=== PATIENT | female | born 1995 | race Caucasian/White ===

== ENCOUNTER → 2016-11-28 | Outpatient (REF) | payer BC, OTHER ==
[2016-11-28 19:03] LABS: ALBUMIN 3.8 GM/DL (3.2-5.2); ALBUMIN/GLOBULIN RATIO 1.15 (1.00-1.93); ALKALINE PHOSPHATASE 58 U/L (45-117); ALT/SGPT 27 U/L (12-78); AMYLASE 32 U/L (25-115); ANION GAP 11 MEQ/L (8-16); AST/SGOT 10 U/L (15-37); BILIRUBIN,TOTAL 0.2 MG/DL (0.2-1.0); BLOOD UREA NITROGEN 10 MG/DL (7-18); CALCIUM LEVEL 8.7 MG/DL (8.5-10.1); CARBON DIOXIDE LEVEL 24 MEQ/L (21-32); CHLORIDE LEVEL 108 MEQ/L (98-107); CREATININE FOR GFR 0.58 MG/DL (0.55-1.02); GLOMERULAR FILTRATION RATE > 60.0 (>60); GLUCOSE, FASTING 88 MG/DL (70-105); POTASSIUM SERUM 4.1 MEQ/L (3.5-5.1); SODIUM LEVEL 143 MEQ/L (136-145); TOTAL PROTEIN 7.1 GM/DL (6.4-8.2)
[2016-11-28 19:25] LABS: BASO # 0.1 K/mm3 (0.0-0.2); BASO % 0.9 % (0.0-1.0); EOS # 0.6 K/mm3 (0.0-0.50); EOS % 6.4 % (0.0-3.0); LARGE UNSTAINED CELL # 0.1 K/mm3 (0.0-0.4); LARGE UNSTAINED CELL % 1.4 % (0.0-4.0); LYMPH # 2.3 K/mm3 (1.5-6.5); LYMPH % 23.6 % (24.0-44.0); MEAN CORPUSCULAR HEMOGLOBIN 29.1 pg (27.0-33.0); MEAN CORPUSCULAR HGB CONC 33.6 g/dl (32.0-36.5); MEAN CORPUSCULAR VOLUME 86.5 fl (80.0-96.0); MONO # 0.5 K/mm3 (0.0-0.8); MONO % 5.3 % (0.0-5.0); NEUTROPHILS # 5.6 K/mm3 (1.8-7.7); NEUTROPHILS % 62.4 % (36.0-66.0); PLATELET COUNT, AUTOMATED 267 k/mm3 (150-450); RED CELL DISTRIBUTION WIDTH 12.7 % (11.5-14.5)
[2016-11-29 09:56] LABS: CONTROL LINE MONO RF C INT CTR LINE PRESENT
[2016-12-01 00:09] LABS: Lyme Disease IgG/IgM Antibodie <0.91 ISR (0.00-0.90); Lyme Disease IgM Ab Quantitati <0.80 index (0.00-0.79)
== END ==
LOC: M LAB REF 12:51
PROVIDERS: ATTEND Physician Assistant Medical
DX: R10.9 Unspecified abdominal pain (principal)

== ENCOUNTER → 2017-03-05 | Outpatient (CLI) | payer BC, OTHER ==
[2017-03-05 17:21] LABS: BASO # 0.1 10^3/uL (0.0-0.2); BASO % 0.5 % (0.0-1.0); EOS # 0.4 10^3/uL (0.0-0.50); EOS % 3.8 % (0.0-3.0); IMMATURE GRANULOCYTE % 0.5 % (0-0); LYMPH # 2.2 10^3/uL (1.5-6.5); LYMPH % 19.7 % (24.0-44.0); MEAN CORPUSCULAR HEMOGLOBIN 28.9 pg (27.0-33.0); MEAN CORPUSCULAR HGB CONC 33.3 g/dl (32.0-36.5); MEAN CORPUSCULAR VOLUME 86.8 fl (80.0-96.0); MONO # 0.7 10^3/uL (0.0-0.8); MONO % 5.9 % (0.0-5.0); NEUTROPHILS # 7.6 10^3/uL (1.8-7.7); NEUTROPHILS % 69.6 % (36.0-66.0); PLATELET COUNT, AUTOMATED 317 10^3/uL (150-450); RED CELL DISTRIBUTION WIDTH 13.2 % (11.5-14.5)
[2017-03-05 19:07] LABS: ALBUMIN 3.8 GM/DL (3.2-5.2); ALBUMIN/GLOBULIN RATIO 1.03 (1.00-1.93); ALKALINE PHOSPHATASE 61 U/L (45-117); ALT/SGPT 23 U/L (12-78); ANION GAP 11 MEQ/L (8-16); AST/SGOT 8 U/L (7-37); BILIRUBIN,TOTAL 0.3 MG/DL (0.2-1.0); BLOOD UREA NITROGEN 12 MG/DL (7-18); CALCIUM LEVEL 8.7 MG/DL (8.5-10.1); CARBON DIOXIDE LEVEL 26 MEQ/L (21-32); CHLORIDE LEVEL 103 MEQ/L (98-107); CREATININE FOR GFR 0.57 MG/DL (0.55-1.02); FREE T4 0.94 NG/DL (0.76-1.46); GLOMERULAR FILTRATION RATE > 60.0 (>60); GLUCOSE, FASTING 120 MG/DL (70-105); POTASSIUM SERUM 4.5 MEQ/L (3.5-5.1); SODIUM LEVEL 140 MEQ/L (136-145); TOTAL PROTEIN 7.5 GM/DL (6.4-8.2)
[2017-03-06 08:20] LABS: CONTROL LINE MONO INT CTR LINE PRESENT
[2017-03-07 14:10] LABS: Lyme Disease IgG/IgM Antibodie <0.91 ISR (0.00-0.90); Lyme Disease IgM Ab Quantitati <0.80 index (0.00-0.79)
== END ==
LOC: M SMT 15:09
PROVIDERS: ATTEND Physician Assistant
DX: R53.83 Other fatigue (principal)

== ENCOUNTER → 2020-09-06 | Outpatient (REF) | payer OTHER | LOC: M PLALAB 13:47 | PROVIDERS: ATTEND Advanced Practice Midwife | DX: O99.211 Obesity complicating pregnancy, first trimester (principal); Z3A.00 Weeks of gestation of pregnancy not specified ==

== ENCOUNTER → 2020-10-25 | Outpatient (CLI) | payer BC, OTHER ==
[2020-10-25 13:33] LABS: HEMATOCRIT 38.2 % (36.0-47.0); HEMOGLOBIN 12.4 g/dl (12.0-15.5); MEAN CORPUSCULAR HEMOGLOBIN 28.6 pg (27.0-33.0); MEAN CORPUSCULAR HGB CONC 32.5 g/dl (32.0-36.5); PLATELET COUNT, AUTOMATED 188 10^3/uL (150-450); RED BLOOD COUNT 4.34 10^6/uL (4.00-5.40); WHITE BLOOD COUNT 9.1 10^3/uL (4.0-10.0)
[2020-10-25 14:00] LABS: TOTAL PROTEIN,RANDOM URINE 13.8 MG/DL (0.0-12.0)
[2020-10-25 14:23] LABS: HEMOGLOBIN A1c 5.4 %
[2020-10-25 14:50] LABS: GC DNA AMPLIFICATION NEGATIVE (NEGATIVE)
[2020-10-25 19:54] LABS: ALT/SGPT 30 U/L (12-78); BILIRUBIN,TOTAL 0.2 MG/DL (0.2-1.0); CREATININE FOR GFR 0.52 MG/DL (0.55-1.30); GLOMERULAR FILTRATION RATE > 60.0 (>60); GLUCOSE CHALLENGE TEST 1 HOUR 126 MG/DL (LESS THAN 140); LDH LACTATE DEHYDROGENASE 192 U/L (84-246); URIC ACID 2.1 MG/DL (2.6-6.0)
[2020-10-25 20:44] LABS: HEPATITIS C VIRUS ABY INDEX 0.1 INDEX (<0.8); HIV 1&2 SCREEN CENTAUR NEGATIVE (NEGATIVE)
== END ==
LOC: M PLALAB 08:14
PROVIDERS: ATTEND Advanced Practice Midwife
DX: Z34.81 Encounter for supervision of other normal pregnancy, first trimester (principal)

== ENCOUNTER → 2020-11-01 | Outpatient (REF) | payer BC, OTHER | LOC: M SFHCWAGY 12:51 | PROVIDERS: ATTEND Advanced Practice Midwife | DX: O99.211 Obesity complicating pregnancy, first trimester (principal); E66.9 Obesity, unspecified; Z3A.00 Weeks of gestation of pregnancy not specified ==

== ENCOUNTER → 2021-01-10 | Outpatient (CLI) | payer BC, OTHER ==
--- NOTE | 2021-01-10 09:36 | REP ---
INDICATION: ANATOMY. COMPARISON: None. TECHNIQUE: Transabdominal scanning FINDINGS: Multiple ultrasonographic images of the gravid uterus shows a single living intrauterine gestation in the cephalic presentation. The placenta is posterior and not low-lying. The cervix measures 5.2 cm in length and is closed. Doppler interrogation of the heart shows a heart rate of 160 beats per minute. The subjective amniotic fluid volume is within normal limits. BPD: 5.6 cm 23 weeks 1 day HC: 21.5 cm 23 weeks 4 days AC: 18.7 cm 23 weeks 3 days FL: 4.3 cm 24 weeks 2 days The estimated weight is 624 g which is at the 95th percentile for a 22 week 3 day gestational age. anatomical structures seen to be unremarkable are as follows: Thalami, cavum septum pellucidum, cerebellum, cisterna magna, cerebral ventricles, kidneys, stomach, cord insertion, ventricular outflow tracts, upper lip, extremities, and four-chamber heart. The spine and three-vessel umbilical cord were seen suboptimally. An intracardiac echogenic focus was identified. IMPRESSION: Single living intrauterine gestation as described above with an estimated gestational age of 23 weeks 5 days via composite criteria and an estimated date of delivery of 05/04/2021 by today's exam. No anomalies were detected, however, I recommend a follow-up examination for optimal visualization of the spine and three-vessel umbilical cord. Additionally, re-evaluation of the echogenic intracardiac focus is recommended. <Electronically signed by Maximino Snow > 01/10/21 [id number]
== END ==
LOC: M WHC 08:09
PROVIDERS: ATTEND Advanced Practice Midwife
DX: O99.212 Obesity complicating pregnancy, second trimester (principal)

== ENCOUNTER → 2021-01-17 | Outpatient (CLI) | payer BC, OTHER | LOC: M PLALAB 10:49 | PROVIDERS: ATTEND Advanced Practice Midwife | DX: Z34.82 Encounter for supervision of other normal pregnancy, second trimester (principal) ==

== ENCOUNTER → 2021-01-28 | Outpatient (CLI) | payer BC, OTHER ==
--- NOTE | 2021-01-28 09:40 | REP ---
INDICATION: F/U ANATOMY. COMPARISON: 01/10/2021 TECHNIQUE: Follow-up Ob ultrasound from incomplete anatomy screen. FINDINGS: Scanning demonstrates a viable single intrauterine gestation in a cephalic lie. motion is observed and heart rate is recorded at 143 beats per minute. An anterior, grade zero placenta is seen without evidence of previa. Amniotic fluid is subjectively normal. Closed cervical length is measured at 4.8 cm transabdominally. No extrauterine abnormality is observed. There has been appropriate interval growth. The following anatomic structures are identified and felt to be sonographically unremarkable: cranium, choroid plexus, cavum, cerebellum and posterior fossa, face and profile, lungs, four-chamber heart with left and right ventricular outflow tract views, diaphragm, left-sided stomach, abdominal wall cord insertion, three-vessel umbilical cord, kidneys and bladder, spine, and upper and lower extremities. The study again shows an echogenic intracardiac focus, unchanged. Biometry chart: BPD 6.5 cm; 26 weeks 1 days Head circumference 24 cm; 26 weeks 1 days Abdominal circumference 22.1 cm; 26 weeks 4 days Femur length 4.9 cm; 26 weeks 3 days Humeral length 4.5 cm; 26 weeks 6 days HC/AC ratio normal 1.09 Cephalic index normal 0.75 Estimated weight 938 grams, 2 pounds 1 ounces, 93rd percentile for 25 weeks 0 days. IMPRESSION: Viable single intrauterine gestation at 26 weeks 3 days by today's composite sonographic criteria. Expected gestational age estimate based on prior sonography is 25 weeks is 0 days. CEDRIC by prior sonography 05/13/2021. There is again seen an intracardiac echogenic focus but the anatomy screen is now complete and there is no other anomaly. <Electronically signed by Fly Matute > 01/28/21 [id number]
== END ==
LOC: M WHC 06:53
PROVIDERS: ATTEND Advanced Practice Midwife
DX: Z34.82 Encounter for supervision of other normal pregnancy, second trimester (principal)

== ENCOUNTER → 2021-02-18 | Outpatient (CLI) | payer OTHER, BC ==
[~2021-02-18] MED LIST: CETI5SOL3 PO; DIPH50CA PO; ECOT81TA5 PO; PRENTAB9 PO
[2021-02-18 13:23] LABS: HEMATOCRIT 36.3 % (36.0-47.0); HEMOGLOBIN 11.5 g/dl (12.0-15.5); MEAN CORPUSCULAR HEMOGLOBIN 28.8 pg (27.0-33.0); MEAN CORPUSCULAR HGB CONC 31.7 g/dl (32.0-36.5); PLATELET COUNT, AUTOMATED 188 10^3/uL (150-450); RED BLOOD COUNT 3.99 10^6/uL (4.00-5.40); WHITE BLOOD COUNT 11.1 10^3/uL (4.0-10.0)
== END ==
LOC: M PLALAB 10:37
PROVIDERS: ATTEND Advanced Practice Midwife
DX: O10.012 Pre-existing essential hypertension complicating pregnancy, second trimester (principal); Z3A.00 Weeks of gestation of pregnancy not specified
CPT/HCPCS: 36415; 82950; 85027; 86850; 86900; 86901; J2790

== ENCOUNTER → 2021-03-07 | Outpatient (CLI) | payer BC, OTHER | LOC: M LAB 07:01 | PROVIDERS: ATTEND Advanced Practice Midwife | DX: O99.810 Abnormal glucose complicating pregnancy (principal); Z3A.00 Weeks of gestation of pregnancy not specified ==

== ENCOUNTER → 2021-03-28 | Outpatient (CLI) | payer BC, OTHER ==
--- NOTE | 2021-03-28 13:59 | REP ---
INDICATION: F/U ANATOMY COMPARISON: 01/28/2021 TECHNIQUE: Transabdominal obstetrical ultrasound with color Doppler evaluation. FINDINGS: Examination demonstrates a single live intrauterine in cephalic presentation. motion is identified by technologist. Placenta is noted posterior and grade 2 without evidence for placenta previa or abruption. Amniotic fluid volume is normal. Cervix is incompletely evaluated due to cephalic presentation obscuring the cervix. Selected gestational age: 33 weeks 3 days with CEDRIC 05/13/2021. Gestational age by current measurements 34 weeks 2 days with CEDRIC 05/07/2021. FHR equals 152 beats per minute. BPD: 8.6 cm; 34 weeks 6 days; 70% HC: 30.3 cm; 33 weeks 4 days; 53% AC: 33.7 cm; 37 weeks 4 days; >95% FL: 6.3 cm; 32 weeks 3 days; 35% HL: 5.6 cm; 32 weeks 5 days; 38% HC/AC: 0.90 Estimated weight 2725 grams (95thpercentile). PACO: 12.4 cm (8.2-24.6) Umbilical artery SD ratio: 2.19 (1.76-3.73) IMPRESSION: Single live advanced gestation in cephalic presentation. Estimated weight is upper limits of normal. <Electronically signed by Shashi Bruno > 03/28/21 [id number]
== END ==
LOC: M WHC 12:33
PROVIDERS: ATTEND Advanced Practice Midwife
DX: O10.013 Pre-existing essential hypertension complicating pregnancy, third trimester (principal); Z3A.33 33 weeks gestation of pregnancy

== ENCOUNTER → 2021-04-11 | Outpatient (REF) | payer BC, OTHER | LOC: M SFHCWAGY 13:06 | PROVIDERS: ATTEND Advanced Practice Midwife | DX: O10.013 Pre-existing essential hypertension complicating pregnancy, third trimester (principal); Z3A.00 Weeks of gestation of pregnancy not specified ==

== ENCOUNTER → 2021-04-25 | Outpatient (CLI) | payer BC, OTHER | LOC: M WHC 08:41 | PROVIDERS: ATTEND Advanced Practice Midwife | DX: O10.013 Pre-existing essential hypertension complicating pregnancy, third trimester (principal) ==

== ENCOUNTER 2021-04-28 03:56 | Inpatient (IN) | payer BC, OTHER ==
[2021-04-28] VITALS (31 sets, daily range): BP systolic 78–153; BP diastolic 37–80
[~2021-04-28] VITALS: Ht 157.5 cm; Wt 133.4 kg
[2021-04-28] MEDS ORDERED: PRENTAB9 PO (04:31)
[2021-04-28] MEDS ORDERED: ECOT81TA5 PO (04:35)
[2021-04-28] MEDS ORDERED: DIPH50CA PO (04:35)
[2021-04-28] MEDS ORDERED: CETI5SOL3 PO (04:35)
[2021-04-28] MEDS ORDERED: HOME MED LIST COMPLETE! XX SCH (05:00)
[2021-04-28] MEDS ORDERED: LACTATED RINGER'S 1000 ML IV STA (05:26)
[2021-04-28] MEDS ORDERED: AMPICILLIN SOD 2 GM in D5W MINI-BAG PLUS 100 ML IV STA (05:26)
[2021-04-28] MEDS ORDERED: OXYTOCIN DRIP 30 UNITS in IV 1 EA IV PRN (05:30)
[2021-04-28] MEDS: LR 1,000 ML IV SCH ×2 (05:30→19:00)
[2021-04-28 06:20] LABS: BASO % 0.3 % (0.0-1.0); EOS # 0.2 10^3/uL (0.0-0.5); EOS % 1.6 % (0.0-3.0); HEMATOCRIT 36.7 % (36.0-47.0); HEMOGLOBIN 11.9 g/dl (12.0-15.5); LYMPH # 2.3 10^3/uL (1.5-5.0); LYMPH % 17.4 % (24.0-44.0); MEAN CORPUSCULAR HEMOGLOBIN 28.1 pg (27.0-33.0); MEAN CORPUSCULAR HGB CONC 32.4 g/dl (32.0-36.5); MEAN CORPUSCULAR VOLUME 86.6 fl (80.0-96.0); MONO # 0.9 10^3/uL (0.0-0.8); MONO % 6.9 % (2.0-8.0); NEUTROPHILS # 9.5 10^3/uL (1.5-8.5); NEUTROPHILS % 72.9 % (36.0-66.0); PLATELET COUNT, AUTOMATED 182 10^3/uL (150-450); RED BLOOD COUNT 4.24 10^6/uL (4.00-5.40)
[2021-04-28] MEDS ORDERED: FENTANYL 2MCG/ML ROPIVACAINE 0.2% IN 0.9% NACL 100ML IVBAG As Ordered ONE ×2 (08:37→18:54)
[2021-04-28] MEDS ORDERED: EPIDURAL/PCA KEYS XX PRN (08:38)
[2021-04-28] MEDS ORDERED: ONDANSETRON 4MG/2ML VIAL IV PRN (08:38)
[2021-04-28] MEDS ORDERED: EPIDURAL COMMENT XX SCH (08:38)
[2021-04-28] MEDS ORDERED: diphenhydrAMINE 50MG/ML VIAL (J1200) IV PRN (08:38)
[2021-04-28] MEDS ORDERED: LACTATED RINGER'S 1000 ML IV PRN (08:38)
[2021-04-28] MEDS ORDERED: ePHEDrine SULFATE 25 MG/5 ML(5MG/ML) SYRINGE IV PRN (08:38)
[2021-04-28] MEDS ORDERED: NALOXONE INJ 0.4MG/1ML VIAL (J2310 PER 1MG) IV PRN (08:38)
[2021-04-28] MEDS ORDERED: REFRIGERATOR IV KEYS XX PRN (08:38)
[2021-04-28] MEDS: FENTANYL/ROPIVACAINE/NACL BAG 100 ML EPIDURAL SCH ×2 (09:09→18:59)
[2021-04-28] MEDS: AMPICILLIN SOD 1 GM in D5W MINI-BAG PLUS 50 ML IV SCH ×3 (11:51→20:00)
[2021-04-28] MEDS ORDERED: CALCIUM CARBONATE 500 MG CHEW U/D PO ONE (20:00)
[2021-04-28] MEDS ORDERED: OXYTOCIN DRIP 30 UNITS in IV 1 EA IV SCH (23:50)
[2021-04-29] VITALS (10 sets, daily range): BP systolic 111–160; BP diastolic 53–91
[2021-04-29 00:50] LABS: CORD GAS ABE A -1.8; CORD GAS ABE V -3.5; CORD GAS HCO3 A 25.9 MEQ/L; CORD GAS HCO3 V 22.4 MEQ/L; CORD GAS O2 SAT V 64.9 %; CORD GAS PCO2 V 43.5 mmHg; CORD GAS PH A 7.283 UNITS; CORD GAS PH V 7.33 UNITS; CORD GAS PO2 A 17.4 mmHg; CORD GAS SBC A 21.4 MEQ/L; CORD GAS SBC V 20.8 MEQ/L; CORD GAS TCO2 A 27.6 MEQ/L; CORD GAS TCO2 V 23.8 MEQ/L
[2021-04-29] MEDS: IBUPROFEN 800 MG TAB PO PRN ×3 (01:40→17:49)
[2021-04-29] MEDS ORDERED: RHOGAM 300 MCG (1500 IU) INJ (J2790) IM SCH (02:20)
[2021-04-29] MEDS ORDERED: PERCOCET 5MG/325MG TAB PO ONE (03:00)
[2021-04-29] MEDS ORDERED: diphenhydrAMINE 25MG CAP PO ONE (06:00)
[2021-04-29] MEDS ORDERED: ANUSOL HC CREAM 30GM TOP PRN (11:00)
[2021-04-29] MEDS ORDERED: MOM 30ML SUSPENSION UDC PO PRN (11:00)
[2021-04-29] MEDS ORDERED: DIBUCAINE 1% OINTMENT 30GM TOP PRN (11:00)
[2021-04-29] MEDS ORDERED: MEASLES,MUMPS,RUBELLA VACCINE INJ (MMR-II) (90707) SC SCH (11:00)
[2021-04-29] MEDS ORDERED: ACETAMINOPHEN TAB 650MG DOSE (2X325MG) PO PRN (11:00)
[2021-04-29] MEDS ORDERED: METHYLERGONOVINE MALEATE 0.2 MG TAB PO PRN (11:00)
[2021-04-29] MEDS: ACETAMINOPHEN 500 MG TAB PO PRN (14:29)
[2021-04-29] MEDS: DOCUSATE SODIUM 100MG CAPSULE PO PRN (17:57)
[2021-04-30] MEDS: IBUPROFEN 800 MG TAB PO PRN ×3 (01:44→20:20)
[2021-04-30 06:36] VITALS: BP 132/66
[2021-04-30] MEDS: PRENATAL VITAMINS CHEWABLE TABLET PO SCH (07:50)
[2021-04-30] MEDS: ACETAMINOPHEN 500 MG TAB PO PRN ×2 (07:50→17:15)
[2021-04-30 18:00] VITALS: BP 123/72
[2021-04-30] MEDS: DOCUSATE SODIUM 100MG CAPSULE PO PRN (20:20)
[2021-05-01] MEDS: ACETAMINOPHEN 500 MG TAB PO PRN (05:51)
[2021-05-01 06:00] VITALS: BP 112/59
[2021-05-01] MEDS: IBUPROFEN 800 MG TAB PO PRN (07:56)
[2021-05-01] MEDS: PRENATAL VITAMINS CHEWABLE TABLET PO SCH (07:56)
== END 2021-05-01 12:04 | disposition home or self-care (01) | DRG 560 ==
LOC: M LDO 03:56 → M LDI 05:29 → M OBS 04-29 05:42
PROVIDERS: ADMIT Obstetrics & Gynecology; ATTEND Obstetrics & Gynecology
PROC: 10E0XZZ Delivery of Products of Conception, External Approach (ICD-10-PCS; principal; 2021-04-29)
DX: O99.334 Smoking (tobacco) complicating childbirth (principal); Z37.0 Single live birth; Z3A.37 37 weeks gestation of pregnancy; F17.200 Nicotine dependence, unspecified, uncomplicated; O99.820 Streptococcus B carrier state complicating pregnancy

== ENCOUNTER → 2022-05-15 | Outpatient (REF) | payer BC, OTHER ==
[2022-05-15 18:37] LABS: APPEARANCE, URINE HAZY (CLEAR); BILIRUBIN, URINE AUTO NEGATIVE (NEGATIVE); BLOOD, URINE BLOOD NEGATIVE (NEGATIVE); COLOR, URINE YELLOW (YELLOW); GLUCOSE, URINE (UA) AUTO NEGATIVE (NEGATIVE); KETONE, URINE AUTO 1+ mg/dL (NEGATIVE); LEUKOCYTE ESTERASE, URINE AUTO TRACE (NEGATIVE); NITRITE, URINE AUTO NEGATIVE (NEGATIVE); PROTEIN, URINE AUTO NEGATIVE (NEGATIVE); SPECIFIC GRAVITY URINE AUTO 1.017 (1.002-1.035)
[2022-05-15 18:45] LABS: BACTERIA, URINE AUTO 1+ (NEGATIVE); RBC, URINE AUTO 1 /HPF (0-3); SQUAMOUS EPITHELIAL CELL UR AU 10 /HPF (0-6); WBC, URINE AUTO 4 /HPF (0-3)
== END ==
LOC: M SFHCLERA 16:53
PROVIDERS: ATTEND Physician Assistant
DX: R10.84 Generalized abdominal pain (principal)

== ENCOUNTER → 2022-06-04 | Outpatient (CLI) | payer BC ==
[2022-06-04 11:38] LABS: BASO # 0.1 10^3/uL (0.0-0.2); BASO % 0.5 % (0.0-1.0); EOS # 0.3 10^3/uL (0.0-0.5); EOS % 2.6 % (0.0-3.0); HEMATOCRIT 39.2 % (36.0-47.0); HEMOGLOBIN 12.7 g/dl (12.0-15.5); LYMPH # 1.9 10^3/uL (1.5-5.0); LYMPH % 18.8 % (24.0-44.0); MEAN CORPUSCULAR HEMOGLOBIN 28.2 pg (27.0-33.0); MEAN CORPUSCULAR HGB CONC 32.4 g/dl (32.0-36.5); MEAN CORPUSCULAR VOLUME 87.1 fl (80.0-96.0); MONO # 0.7 10^3/uL (0.0-0.8); MONO % 6.7 % (2.0-8.0); NEUTROPHILS % 71.1 % (36.0-66.0); PLATELET COUNT, AUTOMATED 242 10^3/uL (150-450); WHITE BLOOD COUNT 9.9 10^3/uL (4.0-10.0)
[2022-06-04 11:41] LABS: ALBUMIN 3.6 G/DL (3.2-5.2); ALKALINE PHOSPHATASE 49 U/L (46-116); ALT/SGPT 21 U/L (7.0-40); AST/SGOT 11 U/L (<34); BILIRUBIN,TOTAL 0.3 MG/DL (0.3-1.2); BLOOD UREA NITROGEN 12 MG/DL (9-23); CALCIUM LEVEL 8.7 MG/DL (8.5-10.1); CARBON DIOXIDE LEVEL 25 MMOL/L (20-31); CHLORIDE LEVEL 106 MMOL/L (98-107); CHOLESTEROL LEVEL 140 MG/DL (<200); CHOLESTEROL RISK RATIO 2.31 (<5); CREATININE FOR GFR 0.58 MG/DL (0.55-1.30); GLOMERULAR FILTRATION RATE > 60.0 (>60); GLUCOSE, FASTING 95 MG/DL (60-100); HDL CHOLESTEROL 60.6 MG/DL (>40); LDL CHOLESTEROL 68.4 MG/DL (<100); NON-HDL-C 79 MG/DL; POTASSIUM SERUM 4.3 MMOL/L (3.5-5.1); SODIUM LEVEL 139 MMOL/L (136-145); TOTAL PROTEIN 6.4 G/DL (5.7-8.2); TRIGLYCERIDES LEVEL 55 MG/DL (<150)
[2022-06-04 12:09] LABS: HEMOGLOBIN A1c 5.3 % (4.0-6.0)
== END ==
LOC: M PLALAB 07:25
PROVIDERS: ATTEND Student in an Organized Health Care Education/Training Program
DX: R73.01 Impaired fasting glucose (principal); E66.01 Morbid (severe) obesity due to excess calories; Z76.89 Persons encountering health services in other specified circumstances

== ENCOUNTER → 2022-06-04 | Outpatient (CLI) | payer BC | LOC: M WHC 06:56 | PROVIDERS: ATTEND Physician Assistant | DX: R10.13 Epigastric pain (principal) ==

== ENCOUNTER → 2022-06-04 | Outpatient (CLI) | payer BC ==
[2022-06-04 12:09] LABS: HEMOGLOBIN A1c 5.3 % (4.0-6.0)
== END ==
LOC: M PLALAB 07:24
PROVIDERS: ATTEND Surgery
DX: Z86.39 Personal history of other endocrine, nutritional and metabolic disease (principal)

== ENCOUNTER → 2022-07-19 | Outpatient (CLI) | payer BC ==
[2022-07-19 10:57] LABS: APPEARANCE, URINE CLEAR (CLEAR); BACTERIA, URINE AUTO 1+ (NEGATIVE); BILIRUBIN, URINE AUTO NEGATIVE (NEGATIVE); BLOOD, URINE BLOOD 2+ (NEGATIVE); COLOR, URINE YELLOW (YELLOW); GLUCOSE, URINE (UA) AUTO NEGATIVE (NEGATIVE); KETONE, URINE AUTO NEGATIVE (NEGATIVE); LEUKOCYTE ESTERASE, URINE AUTO TRACE (NEGATIVE); MUCUS, URINE SMALL (NEGATIVE); NITRITE, URINE AUTO NEGATIVE (NEGATIVE); PROTEIN, URINE AUTO NEGATIVE (NEGATIVE); RBC, URINE AUTO 0 /HPF (0-3); SPECIFIC GRAVITY URINE AUTO 1.017 (1.002-1.035); SQUAMOUS EPITHELIAL CELL UR AU 2 /HPF (0-6); UROBILINOGEN, URINE AUTO 0.2 mg/dL (0.0-2.0); WBC, URINE AUTO 2 /HPF (0-3)
[2022-07-19 11:25] LABS: URIC ACID 3.4 MG/DL (3.1-7.8)
[2022-07-19 11:30] LABS: FREE T4 0.83 NG/DL (0.89-1.76); RHEUMATOID FACTOR QUANT < 3.5 IU/ML (<14); THYROID STIMULATING HORMONE 1.794 uIU/ML (0.55-4.78)
[2022-07-19 11:31] LABS: FOLATE 21.7 NG/ML (>5.4); VITAMIN B12 LEVEL 266 PG/ML (211-911)
== END ==
LOC: M LAB 10:18
PROVIDERS: ATTEND Physician Assistant
DX: M25.50 Pain in unspecified joint (principal); E66.01 Morbid (severe) obesity due to excess calories; G47.00 Insomnia, unspecified

== ENCOUNTER → 2022-08-07 | Outpatient (CLI) | payer BC | LOC: M WHC 12:09 | PROVIDERS: ATTEND Nurse Practitioner Family | DX: R59.0 Localized enlarged lymph nodes (principal) ==

== ENCOUNTER 2022-10-07 12:44 | Day surgery (SDC) | payer BC ==
[~2022-10-07] VITALS: Ht 157.5 cm; Wt 128.4 kg
[~2022-10-07 12:44] MED LIST changes: +DULO1CAP5 PO; +NS 1,000 ML IV ONE; +PHEN37.58 PO; +SERT50TA29 PO; +SPIR50TA4 PO
[2022-10-07 15:00] VITALS: TEMP 97.1
[2022-10-07 15:10] VITALS: BP 121/81; O2SAT 95
== END 2022-10-07 15:25 | disposition home or self-care (01) ==
LOC: M OPP 12:44
PROVIDERS: ATTEND Internal Medicine Gastroenterology
DX: Z01.818 Encounter for other preprocedural examination (principal); K29.70 Gastritis, unspecified, without bleeding; E66.01 Morbid (severe) obesity due to excess calories; Z87.891 Personal history of nicotine dependence

== ENCOUNTER → 2022-12-29 | Outpatient (CLI) | payer MEDICAID ==
[~2022-12-29] MED LIST changes: -NS 1,000 ML IV ONE
[2022-12-29 11:22] LABS: BASO # 0.1 10^3/uL (0.0-0.2); BASO % 0.7 % (0.0-1.0); EOS # 0.3 10^3/uL (0.0-0.5); EOS % 3.6 % (0.0-3.0); HEMATOCRIT 37.3 % (36.0-47.0); HEMATOCRIT 38.5 % (36.0-47.0); HEMOGLOBIN 11.9 g/dl (12.0-15.5); LYMPH # 1.9 10^3/uL (1.5-5.0); LYMPH % 25.8 % (24.0-44.0); MEAN CORPUSCULAR HEMOGLOBIN 28.5 pg (27.0-33.0); MEAN CORPUSCULAR HGB CONC 31.9 g/dl (32.0-36.5); MEAN CORPUSCULAR VOLUME 89.2 fl (80.0-96.0); MONO # 0.5 10^3/uL (0.0-0.8); MONO % 7.3 % (2.0-8.0); NEUTROPHILS # 4.5 10^3/uL (1.5-8.5); NEUTROPHILS % 62.3 % (36.0-66.0); PLATELET COUNT, AUTOMATED 200 10^3/uL (150-450); RED BLOOD COUNT 4.18 10^6/uL (4.00-5.40); WHITE BLOOD COUNT 7.2 10^3/uL (4.0-10.0)
[2022-12-29 11:52] LABS: HEMOGLOBIN A1c 4.4 % (4.0-6.0)
[2022-12-29 11:57] LABS: IRON (FE) 66 UG/DL (50-170); PERCENT SATURATION 22.3 % (13.2-45.0); TOTAL IRON BINDING CAPACITY 296 UG/DL (250-425)
[2022-12-29 11:58] LABS: ALBUMIN 3.9 G/DL (3.2-5.2); ALKALINE PHOSPHATASE 56 U/L (46-116); ALT/SGPT 31 U/L (7.0-40); AST/SGOT 21 U/L (<34); BILIRUBIN,TOTAL 0.4 MG/DL (0.3-1.2); BLOOD UREA NITROGEN 15 MG/DL (9-23); CALCIUM LEVEL 9.3 MG/DL (8.5-10.1); CARBON DIOXIDE LEVEL 22 MMOL/L (20-31); CHLORIDE LEVEL 107 MMOL/L (98-107); CREATININE FOR GFR 0.52 MG/DL (0.55-1.30); FERRITIN 80.4 NG/ML (7.3-270.7); GLOMERULAR FILTRATION RATE > 60.0 (>60); GLUCOSE, FASTING 80 MG/DL (60-100); MAGNESIUM LEVEL 1.8 MG/DL (1.8-2.4); POTASSIUM SERUM 4.2 MMOL/L (3.5-5.1); SODIUM LEVEL 139 MMOL/L (136-145); TOTAL 25(OH) VITAMIN D 31.4 NG/ML (20.0-100.0); TOTAL PROTEIN 6.6 G/DL (5.7-8.2); VITAMIN B12 LEVEL 534 PG/ML (211-911)
== END ==
LOC: M LAB 09:48
PROVIDERS: ATTEND Surgery
DX: K91.2 Postsurgical malabsorption, not elsewhere classified (principal); Z98.84 Bariatric surgery status; E55.9 Vitamin D deficiency, unspecified; Z86.39 Personal history of other endocrine, nutritional and metabolic disease

== ENCOUNTER → 2023-02-12 | Outpatient (CLI) | payer OTHER ==
[2023-02-12 13:29] LABS: HIV 1&2 SCREEN NEGATIVE (NEGATIVE)
[2023-02-12 13:36] LABS: HEPATITIS B CORE ANTIBODY IGM NEGATIVE (NEGATIVE); HEPATITIS C VIRUS ABY INDEX 0.05 INDEX (<0.8)
== END ==
LOC: M LAB 11:44
PROVIDERS: ATTEND Physician Assistant
DX: Z79.899 Other long term (current) drug therapy (principal)

== ENCOUNTER → 2023-05-01 | Outpatient (CLI) | payer OTHER ==
[2023-05-01 16:49] LABS: CHOLESTEROL RISK RATIO 2.61 (<5); HDL CHOLESTEROL 49.7 MG/DL (>40); LDL CHOLESTEROL 66.1 MG/DL (<100); NON-HDL-C 80.3 MG/DL
[2023-05-01 16:51] LABS: FREE T4 1.08 NG/DL (0.89-1.76)
[2023-05-01 16:52] LABS: THYROID STIMULATING HORMONE 2.514 uIU/ML (0.55-4.78)
== END ==
LOC: M LAB 16:00
PROVIDERS: ATTEND Physician Assistant
DX: Z98.84 Bariatric surgery status (principal)

== ENCOUNTER → 2023-06-16 | Outpatient (CLI) | payer MEDICAID, OTHER ==
[2023-06-16 11:12] LABS: BASO % 0.7 % (0.0-1.0); EOS # 0.1 10^3/uL (0.0-0.5); EOS % 2.1 % (0.0-3.0); HEMATOCRIT 40.8 % (36.0-47.0); HEMOGLOBIN 13.2 g/dl (12.0-15.5); LYMPH % 32.7 % (24.0-44.0); MEAN CORPUSCULAR HEMOGLOBIN 29.9 pg (27.0-33.0); MEAN CORPUSCULAR HGB CONC 32.4 g/dl (32.0-36.5); MEAN CORPUSCULAR VOLUME 92.3 fl (80.0-96.0); MONO # 0.4 10^3/uL (0.0-0.8); MONO % 6.1 % (2.0-8.0); NEUTROPHILS # 3.5 10^3/uL (1.5-8.5); NEUTROPHILS % 58.2 % (36.0-66.0); PLATELET COUNT, AUTOMATED 252 10^3/uL (150-450); RED BLOOD COUNT 4.42 10^6/uL (4.00-5.40); WHITE BLOOD COUNT 6.1 10^3/uL (4.0-10.0)
[2023-06-16 11:44] LABS: ALBUMIN 3.8 G/DL (3.2-5.2); ALKALINE PHOSPHATASE 61 U/L (46-116); ALT/SGPT 16 U/L (7.0-40); AST/SGOT 11 U/L (<34); BILIRUBIN,TOTAL 0.4 MG/DL (0.3-1.2); BLOOD UREA NITROGEN 15 MG/DL (9-23); CALCIUM LEVEL 9.3 MG/DL (8.5-10.1); CARBON DIOXIDE LEVEL 30 MMOL/L (20-31); CHLORIDE LEVEL 108 MMOL/L (98-107); CREATININE FOR GFR 0.57 MG/DL (0.55-1.30); GLOMERULAR FILTRATION RATE > 60.0 (>60); GLUCOSE, FASTING 92 MG/DL (60-100); IRON (FE) 86 UG/DL (50-170); PERCENT SATURATION 25.1 % (13.2-45.0); POTASSIUM SERUM 5.5 MMOL/L (3.5-5.1); SODIUM LEVEL 139 MMOL/L (136-145); TOTAL IRON BINDING CAPACITY 342 UG/DL (250-425); TOTAL PROTEIN 6.6 G/DL (5.7-8.2)
[2023-06-16 11:46] LABS: FERRITIN 20.9 NG/ML (7.3-270.7); FOLATE > 24.0 NG/ML (>5.4); TOTAL 25(OH) VITAMIN D 23.8 NG/ML (20.0-100.0)
[2023-06-16 11:47] LABS: VITAMIN B12 LEVEL 1773 PG/ML (211-911)
== END ==
LOC: M LAB 09:29
PROVIDERS: ATTEND Physician Assistant
DX: Z98.84 Bariatric surgery status (principal)

== ENCOUNTER → 2023-06-18 | Outpatient (CLI) | payer OTHER ==
[2023-06-18 14:17] LABS: MAGNESIUM LEVEL 1.9 MG/DL (1.8-2.4); POTASSIUM SERUM 3.9 MMOL/L (3.5-5.1)
== END ==
LOC: M LAB 13:00
PROVIDERS: ATTEND Physician Assistant
DX: E87.5 Hyperkalemia (principal)

== ENCOUNTER → 2023-10-05 | Outpatient (CLI) | payer OTHER | LOC: M RAD 11:24 | PROVIDERS: ATTEND Physician Assistant | DX: M25.552 Pain in left hip (principal); M54.50 Low back pain, unspecified ==

== ENCOUNTER → 2023-10-09 | Outpatient (REF) | LOC: M EMP 09:04 | PROVIDERS: ATTEND Family Medicine | DX: Z11.52 Encounter for screening for COVID-19 (principal) ==

== ENCOUNTER 2023-12-16 20:43 | Emergency (ER) | payer OTHER ==
[~2023-12-16] VITALS: Ht 157.5 cm; Wt 93.8 kg
[2023-12-16 20:44] VITALS: BP 123/75; TEMP 98.6; O2SAT 99
== END 2023-12-17 00:10 | disposition left against medical advice (07) ==
LOC: M ED 20:43
DX: Z53.21 Procedure and treatment not carried out due to patient leaving prior to being seen by health care provider (principal)

== ENCOUNTER → 2024-02-22 | Outpatient (REF) | LOC: M EMP 09:00 | PROVIDERS: ATTEND Family Medicine | DX: Z11.52 Encounter for screening for COVID-19 (principal) ==

== ENCOUNTER → 2024-03-15 | Outpatient (REF) | payer MEDICAID, OTHER | LOC: M PLALAB 15:31 | PROVIDERS: ATTEND Nurse Practitioner Family | DX: Z34.81 Encounter for supervision of other normal pregnancy, first trimester (principal); Z3A.00 Weeks of gestation of pregnancy not specified ==

== ENCOUNTER → 2024-04-01 | Outpatient (CLI) | payer OTHER ==
[2024-04-01 13:50] LABS: HEMATOCRIT 38.2 % (36.0-47.0); HEMOGLOBIN 12.7 g/dl (12.0-15.5); MEAN CORPUSCULAR HEMOGLOBIN 30.1 pg (27.0-33.0); MEAN CORPUSCULAR HGB CONC 33.2 g/dl (32.0-36.5); MEAN CORPUSCULAR VOLUME 90.5 fl (80.0-96.0); PLATELET COUNT, AUTOMATED 222 10^3/uL (150-450); RED BLOOD COUNT 4.22 10^6/uL (4.00-5.40); WHITE BLOOD COUNT 8.8 10^3/uL (4.0-10.0)
[2024-04-01 14:11] LABS: HEMOGLOBIN A1c 4.8 % (4.0-6.0)
[2024-04-01 14:13] LABS: TOTAL PROTEIN,RANDOM URINE 10.2 MG/DL (0.0-14.0)
[2024-04-01 14:15] LABS: URIC ACID 1.3 MG/DL (3.1-7.8)
[2024-04-01 14:16] LABS: CREATININE,RANDOM URINE 101.3 MG/DL
[2024-04-01 14:17] LABS: LDH LACTATE DEHYDROGENASE 182 U/L (120-246)
[2024-04-01 14:18] LABS: IRON (FE) 88 UG/DL (50-170)
[2024-04-01 14:19] LABS: ALT/SGPT 13 U/L (7.0-40); AST/SGOT 10 U/L (<34); BILIRUBIN,TOTAL 0.5 MG/DL (0.3-1.2); CREATININE FOR GFR 0.45 MG/DL (0.55-1.30); GLOMERULAR FILTRATION RATE > 60.0 (>60)
[2024-04-01 14:20] LABS: TOTAL 25(OH) VITAMIN D 24.2 NG/ML (20.0-100.0)
[2024-04-01 14:21] LABS: FOLATE > 24.00 NG/ML (>5.4); VITAMIN B12 LEVEL 367 PG/ML (211-911)
[2024-04-01 14:52] LABS: HIV 1&2 SCREEN NEGATIVE (NEGATIVE)
[2024-04-01 14:59] LABS: HEPATITIS C VIRUS ABY INDEX < 0.02 INDEX (<0.8)
[2024-04-01 15:08] LABS: GC DNA AMPLIFICATION NEGATIVE (NEGATIVE)
== END ==
LOC: M PLALAB 12:07
PROVIDERS: ATTEND Nurse Practitioner Family
DX: Z34.81 Encounter for supervision of other normal pregnancy, first trimester (principal)

== ENCOUNTER → 2024-04-15 | Outpatient (CLI) | payer OTHER | LOC: M PLALAB 12:06 | PROVIDERS: ATTEND Obstetrics & Gynecology | DX: Z34.92 Encounter for supervision of normal pregnancy, unspecified, second trimester (principal) ==

== ENCOUNTER → 2024-05-24 | Outpatient (CLI) | payer OTHER | LOC: M WHC 09:49 | PROVIDERS: ATTEND Obstetrics & Gynecology | DX: O28.3 Abnormal ultrasonic finding on antenatal screening of mother (principal); Z3A.20 20 weeks gestation of pregnancy; O43.192 Other malformation of placenta, second trimester ==

== ENCOUNTER → 2024-06-24 | Outpatient (CLI) | payer OTHER | LOC: M WHC 09:14 | PROVIDERS: ATTEND Advanced Practice Midwife | DX: O99.842 Bariatric surgery status complicating pregnancy, second trimester (principal); Z3A.25 25 weeks gestation of pregnancy ==

== ENCOUNTER → 2024-07-06 | Outpatient (CLI) | payer OTHER ==
[2024-07-06 10:30] LABS: HEMATOCRIT 36.7 % (36.0-47.0); HEMOGLOBIN 12.1 g/dl (12.0-15.5); MEAN CORPUSCULAR HEMOGLOBIN 30.8 pg (27.0-33.0); MEAN CORPUSCULAR VOLUME 93.4 fl (80.0-96.0); PLATELET COUNT, AUTOMATED 213 10^3/uL (150-450); RED BLOOD COUNT 3.93 10^6/uL (4.00-5.40); WHITE BLOOD COUNT 9.6 10^3/uL (4.0-10.0)
[2024-07-06 11:06] LABS: HEMOGLOBIN A1c 4.6 % (4.0-6.0)
[2024-07-06 11:53] LABS: Trichomonas vaginalis (AMP) NOT DETECTED (NEGATIVE)
[2024-07-06 12:17] LABS: GC DNA AMPLIFICATION NEGATIVE (NEGATIVE)
[2024-07-06 19:02] LABS: IRON (FE) 55 UG/DL (50-170)
[2024-07-06 19:03] LABS: PERCENT SATURATION 11.9 % (13.2-45.0); TOTAL IRON BINDING CAPACITY 462 UG/DL (250-425)
[2024-07-06 19:04] LABS: FERRITIN 5.5 NG/ML (7.3-270.7); FOLATE 19.21 NG/ML (>5.4)
[2024-07-06 19:05] LABS: TOTAL 25(OH) VITAMIN D 21.4 NG/ML (20.0-100.0); VITAMIN B12 LEVEL 255 PG/ML (211-911)
[2024-07-06 19:29] LABS: HIV 1&2 SCREEN NEGATIVE (NEGATIVE)
[2024-07-06 19:37] LABS: HEPATITIS C VIRUS ABY INDEX 0.03 INDEX (<0.8)
== END ==
LOC: M PLALAB 07:17
PROVIDERS: ATTEND Obstetrics & Gynecology
DX: Z34.82 Encounter for supervision of other normal pregnancy, second trimester (principal)

== ENCOUNTER → 2024-07-27 | Outpatient (CLI) | payer OTHER | LOC: M WHC 10:22 | PROVIDERS: ATTEND Obstetrics & Gynecology | DX: O99.842 Bariatric surgery status complicating pregnancy, second trimester (principal); Z3A.29 29 weeks gestation of pregnancy ==

== ENCOUNTER → 2024-08-01 | Outpatient (CLI) | payer OTHER | LOC: M WHC 08:09 | PROVIDERS: ATTEND Obstetrics & Gynecology | DX: O99.843 Bariatric surgery status complicating pregnancy, third trimester (principal) ==

== ENCOUNTER → 2024-09-21 | Outpatient (CLI) | payer OTHER ==
[~2024-09-21] MED LIST changes: +BUSP30TA PO
== END ==
LOC: M WHC 08:28
PROVIDERS: ATTEND Obstetrics & Gynecology
DX: O99.843 Bariatric surgery status complicating pregnancy, third trimester (principal); Z3A.34 34 weeks gestation of pregnancy

== ENCOUNTER 2024-09-29 18:39 | Inpatient (IN) | payer OTHER ==
[2024-09-29] VITALS (9 sets, daily range): BP systolic 134–171; BP diastolic 74–99
[~2024-09-29] VITALS: Ht 157.5 cm; Wt 104.6 kg
[2024-09-29] MEDS ORDERED: HOME MED LIST COMPLETE! XX SCH (19:15)
[2024-09-29] MEDS ORDERED: OXYTOCIN INJ 10UNITS/ML 1ML VIAL IM PRN (19:20)
[2024-09-29] MEDS ORDERED: LIDOCAINE 1% MDV 20 ML VIAL INFIL PRN (19:20)
[2024-09-29] MEDS ORDERED: TRANEXAMIC ACID INJection 1,000 MG in NS 100 ML IV PRN (19:20)
[2024-09-29] MEDS ORDERED: OXYTOCIN INJ 10UNITS/ML 1ML VIAL IV PRN (19:20)
[2024-09-29] MEDS ORDERED: OXYTOCIN DRIP 30 UNITS in IV 1 EA IV SCH (19:20)
[2024-09-29] MEDS ORDERED: METHYLERGONOVINE MALEATE 0.2 MG/ML 1 ML VIAL IM PRN (19:20)
[2024-09-29] MEDS ORDERED: LR 1,000 ML IV SCH ×2 (19:20)
[2024-09-29] MEDS ORDERED: OXYTOCIN DRIP 30 UNITS in IV 1 EA IV PRN (19:20)
[2024-09-29] MEDS ORDERED: CARBOPROST TROMETHAMINE 250 MCG/ML AMP IM PRN (19:20)
[2024-09-29] MEDS ORDERED: OXYTOCIN 30UNITS IN 0.9% NaCl 500ML IV BAG As Ordered ONE (19:23)
[2024-09-29 19:50] LABS: PLATELET COUNT, AUTOMATED 159 10^3/uL (150-450)
[2024-09-29] MEDS ORDERED: EPIDURAL/PCA KEYS XX PRN (19:55)
[2024-09-29] MEDS ORDERED: LR 500 ML IV PRN (19:55)
[2024-09-29] MEDS ORDERED: ONDANSETRON 4MG 2ML VIAL IV PRN (19:55)
[2024-09-29] MEDS ORDERED: NALOXONE INJ 0.4MG/1ML VIAL IV PRN (19:55)
[2024-09-29] MEDS ORDERED: diphenhydrAMINE 50 MG/ML VIAL IV PRN (19:55)
[2024-09-29] MEDS: FENTANYL/ROPIVACAINE/NACL BAG 100 ML EPIDURAL SCH (20:03)
[2024-09-29] MEDS: MORPHINE 4 MG/ML 1 ML VIAL IV ONE (22:54)
[2024-09-29] MEDS ORDERED: IBUPROFEN 800 MG TAB PO PRN (23:05)
[2024-09-29] MEDS ORDERED: METHYLERGONOVINE MALEATE 0.2 MG TAB PO PRN (23:05)
[2024-09-29] MEDS ORDERED: RHOGAM 300MCG (1500IU) INJ IM SCH (23:05)
[2024-09-29] MEDS ORDERED: DIBUCAINE 1% OINTMENT 30 GM TOP PRN (23:05)
[2024-09-29 23:07] LABS: CORD GAS ABE A -5.1; CORD GAS ABE V -5.4; CORD GAS HCO3 A 22.2 MMOL/L; CORD GAS HCO3 V 19.1 MMOL/L; CORD GAS O2 SAT A 52.7 %; CORD GAS O2 SAT V 82.5 %; CORD GAS PCO2 A 50.0 mmHg; CORD GAS PCO2 V 34.3 mmHg; CORD GAS PH A 7.266 UNITS; CORD GAS PH V 7.364 UNITS; CORD GAS PO2 A 23.3 mmHg; CORD GAS PO2 V 36.3 mmHg; CORD GAS SBC A 19.3 MMOL/L; CORD GAS SBC V 19.7 MMOL/L; CORD GAS TCO2 A 23.8 MMOL/L; CORD GAS TCO2 V 20.2 MMOL/L
[2024-09-29] MEDS: OXYTOCIN DRIP 30 UNITS in IV 1 EA IV PRN (23:34)
[2024-09-30] MEDS: LACTATED RINGER'S 1000 ML IV STA (00:31)
[2024-09-30 00:36] VITALS: BP 135/73; O2SAT 98
[2024-09-30] MEDS: ACETAMINOPHEN 500 MG TAB PO PRN (06:11)
[2024-09-30 06:13] VITALS: BP 146/94; O2SAT 97
[2024-09-30] MEDS: DOCUSATE SODIUM 100 MG CAPSULE PO PRN (08:46)
[2024-09-30] MEDS: PRENATAL VITAMINS CHEWABLE TABLET PO SCH (08:46)
[2024-09-30] MEDS ORDERED: PRENATAL VITAMINS CHEWABLE TABLET PO SCH (09:00)
[2024-09-30 10:22] VITALS: BP 140/74
[2024-09-30] MEDS: ACETAMINOPHEN 325 MG TAB PO PRN (16:39)
[2024-09-30 18:30] VITALS: BP 141/97; O2SAT 96
[2024-10-01 06:16] VITALS: BP 139/82; O2SAT 100
[2024-10-01] MEDS: MEASLES,MUMPS,RUBELLA VACCINE INJ (MMR-II) SC.IMMUN ONE (07:32)
== END 2024-10-01 11:05 | disposition home or self-care (01) | DRG 560 ==
LOC: M LDO 18:39 → M LDI 19:01 → M OBS 09-30 00:24
PROVIDERS: ADMIT Obstetrics & Gynecology; ATTEND Obstetrics & Gynecology
PROC: 10E0XZZ Delivery of Products of Conception, External Approach (ICD-10-PCS; principal; 2024-09-29)
DX: O80 Encounter for full-term uncomplicated delivery (principal); Z37.0 Single live birth; Z3A.38 38 weeks gestation of pregnancy

== ENCOUNTER → 2025-01-25 | Outpatient (REF) | payer OTHER ==
[~2025-01-25] MED LIST changes: -DIPH50CA PO; +DIPH50CA31 PO
== END ==
LOC: M SFHCPLAZ 10:20
PROVIDERS: ATTEND Family Medicine
DX: Z53.9 Procedure and treatment not carried out, unspecified reason (principal)

== ENCOUNTER → 2025-01-25 | Outpatient (CLI) | payer OTHER ==
[2025-01-25 14:15] LABS: PLATELET COUNT, AUTOMATED 261 10^3/uL (150-450)
[2025-01-25 14:18] LABS: CHOLESTEROL LEVEL 142 MG/DL (<200); CHOLESTEROL RISK RATIO 1.95 (<5); FREE T4 1.32 NG/DL (0.89-1.76); LDL CHOLESTEROL 63.6 MG/DL (<100); NON-HDL-C 69.4 MG/DL; TRIGLYCERIDES LEVEL 29 MG/DL (<150); VITAMIN B12 LEVEL 239 PG/ML (211-911)
[2025-01-25 14:21] LABS: TOTAL 25(OH) VITAMIN D 27.1 NG/ML (20.0-100.0)
== END ==
LOC: M PLALAB 10:38
PROVIDERS: ATTEND Family Medicine
DX: R42 Dizziness and giddiness (principal); Z98.84 Bariatric surgery status; Z13.6 Encounter for screening for cardiovascular disorders